=== PATIENT | female | born 1970 | race Caucasian/White ===

== ENCOUNTER → 2024-01-15 16:45 | Outpatient (REF) | payer OTHER, SELFPAY | LOC: HWWDC 16:45 | PROVIDERS: ATTENDING PHYSICIAN Nurse Practitioner | DX: Z12.31 Encounter for screening mammogram for malignant neoplasm of breast (principal) | CPT/HCPCS: 77063; 77067 ==

== ENCOUNTER 2024-01-15 20:25 | Emergency (ER) | payer OTHER, SELFPAY ==
[2024-01-15 20:29] VITALS: BP 137/66
--- NOTE | 2024-01-15 20:54 | ED.GENMED ---
History of Present Illness
General
Chief Complaint: Ear Problem
Source: patient
Exam Limitations: none
Time Seen by Provider: 01/15/24 20:42
Nursing documentation reviewed up to this point in time: agreed with
Travel History
Have you had any contact with someone who has COVID-19?: No
Do you have any symptoms of coronavirus? Fever > 100 degrees, chills, cough, shortness of breath, sore throat, loss of taste or smell, muscle aches, or headache?: No
History of Present Illness
History of Present Illness:
Patient states she developed pain and fullness to her right ear approx 10 days ago. She was seen at and placed on amoxicillin and nasal decongestant without improvemen. States ear pain is worsening. Denies fever/chlls. Has appt with ENT
scheduled for next week.
Past History
Past History
ED Past Medical History: None
ED Past Surgical History: None
Social History
Tobacco: Non-smoker
Drug: None
Personal:
Living: with family
Family History
Family History: Other (NA)
Review of Systems
Review of Systems
Allergies reviewed?: Yes
All Other Systems: ROS reviewed and negative except as documented in HPI and ROS
Constitutional: Reports no symptoms
EENT: Reports other (right ear pain)
Musculoskeletal: Reports no symptoms
Skin: Reports no symptoms
Neurological: Reports no symptoms
Psychiatric: Reports no symptoms
Phy Exam
General Physical Exam
General Presentation: well appearing
General age: appears stated age
General Skin: warm and dry
General Habitus: normal
General Mental: alert
ENT Exam
ENT Exam: EOMI, TM's normal, pharynx normal, neck supple, swallowing well and other (Left canal narrow, painful. No discharge. WIll place on cortisporin drops. )
Musculoskeletal Exam
Musculoskeletal Exam: full ROM and neuro vasc intact
Skin Exam
Skin Exam: normal color, warm/dry and no rash
Psychiatric Exam
Psychiatric Exam: normal mood/affect
Course
Orders/Labs/Results
Orders:
Orders
01/15/24 20:50
Neomycin/Polymyxin/Hc [Cortisporin Otic Suspension] See Dose Instructions [facility] NOW STA
Vital Signs
Initial and Last Documented VS:
Initial Vital Signs
Temp Pulse Resp BP Pulse Ox
98.3 F 67 18 137/66 98
01/15/24 20:29 01/15/24 20:29 01/15/24 20:29 01/15/24 20:29 01/15/24 20:29
Last Documented Vital Signs
Temp Pulse Resp BP Pulse Ox
98.3 F 67 18 137/66 98
01/15/24 20:29 01/15/24 20:29 01/15/24 20:29 01/15/24 20:29 01/15/24 20:29
*Critical Care Note
Total Time (30-74mins, 75-104mins- exclusive of procedures): Not Applicable
ED Attending Note
-
Portions of this chart may have been created with voice recognition software.� Occasional wrong word or��sound alike� substitutions may have occurred due to the inherent limitations of voice recognition software.
Discharge Plan
Departure
Patient Disposition: Home (Routine Discharge)
Date of Disposition: 01/15/24
Time of Disposition: 20:51
Patient with high blood pressure during this ER visit?: No
Condition: Good
Covid-19: Not Applicable
Discharge Problem:
Acute ear pain
Instructions: Outer Ear Infection (DC)
Prescriptions:
New
Cortisporin-TC 3.3-3-10-0.5 mg/mL drops,suspension
4 drp otic (ear) TID Qty: 10 0RF
No Action
ibuprofen 200 MG tablet
400 mg PO Q4HPRN PRN (Reason: mild pain)
peg 400-propylene glycol (PF) [Systane (PF)] 1 EACH dropperette
1 drp BOTH EYES DAILYPRN PRN (Reason: dry eyes)
melatonin 10 MG tablet,disintegrating
10 mg PO HSPRN PRN (Reason: sleep)
prochlorperazine maleate 10 MG tablet
10 mg PO DAILY PRN (Reason: headache/nausea) 30 Days Qty: 30 0RF
Rx Instructions:
for headache symptom control
Do not utilize more than 4x/weekly per Neurology
Activity Restrictions/Additional Instructions:
Follow up with ENT next week as scheduled
Interventions
Interventions:
*Risk Screen - Suicide Last Done: 01/15/24 20:29
*General Assessment Last Done: 01/15/24 20:29
*Neglect/Abuse Screening Last Done: 01/15/24 20:29
Discharge Date and Time
Print Language: MAURITIAN
[2024-01-15] MEDS: CORTISPORIN OTIC SUSPENSION 1 DROP OTIC (21:04)
== END 2024-01-15 21:20 | disposition home or self-care (01) ==
LOC: EMR 20:25
PROVIDERS: EMERGENCY PHYSICIAN Emergency Medicine; FAMILY PHYSICIAN Nurse Practitioner
DX: H92.03 Otalgia, bilateral (principal)
CPT/HCPCS: 99282

== ENCOUNTER → 2024-09-04 13:02 | Outpatient (REF) | payer OTHER, SELFPAY | LOC: HWRAD 13:02 | PROVIDERS: ATTENDING PHYSICIAN Family Medicine | DX: Z13.820 Encounter for screening for osteoporosis (principal) | CPT/HCPCS: 77080 ==

== ENCOUNTER 2024-11-02 08:02 | Emergency (ER) | payer OTHER, SELFPAY ==
[2024-11-02 08:04] VITALS: BP 131/73
--- NOTE | 2024-11-02 09:09 | ED.MUSCINJ ---
HPI-Injury
General
Chief Complaint: Musculo-Skeletal Complaint
Source: patient
Exam Limitations: none
Time Seen by Provider: 11/02/24 08:31
Nursing documentation reviewed up to this point in time: agreed with
History of Present Illness-Injury
Initial Injury comments:
54-year-old female celebrating [place] win last night threw her hands up into the air and left elbow came down hard on the back of a chair. Pain posterior left elbow.
Past History
Past History
ED Past Medical History: None
ED Past Surgical History: Gynecological and Orthopedic
Social History
Tobacco: Non-smoker
Alcohol: Occasional
Drug: None
Personal:
Living: with family
Employment: Employed
Family History
Family History: Other (NA)
Review of Systems
Review of Systems
Allergies reviewed?: Yes
All Other Systems: ROS reviewed and negative except as documented in HPI and ROS
Musculoskeletal: Reports other (pain left elbow)
Skin: Reports no symptoms
Neurological: Denies weakness or numbness
Phy Exam
Physical Exam
Physical Exam:
PHYSICAL EXAMINATION:
General: no apparent distress, not acutely ill
Neuro: alert and oriented.
Psychiatric: well kept. interactive and cooperative
Musculoskeletal: Posterior left elbow with mild swelling and mild ecchymosis. Full ROM. Distan N/V intact. Moves with ease
Skin: Warm, pink.
Injury Course
Orders/Labs/Results
Orders:
Orders
11/02/24 08:06
Elbow, 3 view, Left [CR Elbow - Left Min 3 Views ] Urgent
Comment: came down on chair yesterday
Reason For Exam: left elbow pain
MDM/Problems Addressed
Differential Diagnosis Includes:
contusion vs fracture
MDM/Problems Addressed:
54-year-old female celebrating [place] win last night threw her hands up into the air and left elbow came down hard on the back of a chair. Pain posterior left elbow.
Elbow x-ray read by this examiner: No acute abnormality noted
Final diagnosis: Contusion left elbow
*Critical Care Note
Total Time (30-74mins, 75-104mins- exclusive of procedures): Not Applicable
ED Attending Note
-
Portions of this chart may have been created with voice recognition software.� Occasional wrong word or��sound alike� substitutions may have occurred due to the inherent limitations of voice recognition software.
Discharge Plan
Departure
Patient Disposition: Home (Routine Discharge)
Date of Disposition: 11/02/24
Time of Disposition: 09:08
Patient with high blood pressure during this ER visit?: No
Condition: Good
Discharge Problem:
Contusion of left elbow
Instructions: Contusion (DC)
Prescriptions:
No Action
ibuprofen 200 MG tablet
400 mg PO Q4HPRN PRN (Reason: mild pain)
peg 400-propylene glycol (PF) [Systane (PF)] 1 EACH dropperette
1 drp BOTH EYES DAILYPRN PRN (Reason: dry eyes)
melatonin 10 MG tablet,disintegrating
10 mg PO HSPRN PRN (Reason: sleep)
prochlorperazine maleate 10 MG tablet
10 mg PO DAILY PRN (Reason: headache/nausea) 30 Days Qty: 30 0RF
Rx Instructions:
for headache symptom control
Do not utilize more than 4x/weekly per Neurology
Cortisporin-TC 3.3-3-10-0.5 mg/mL drops,suspension
4 drp otic (ear) TID Qty: 10 0RF
Referrals:
Mary Perez, DO [Family Provider] -
Activity Restrictions/Additional Instructions:
As we discussed, your xray shows nothing broken.
Interventions
Interventions:
*Risk Screen - Suicide Last Done: 11/02/24 08:04
*Neglect/Abuse Screening Last Done: 11/02/24 08:04
*Nursing Disposition Last Done: 11/02/24 09:15
ED-Musculoskeletal Assessment Last Done: 11/02/24 09:15
Discharge Date and Time
Discharge Date/Time: 11/02/24 09:16
Print Language: NORWEGIAN
== END 2024-11-02 09:16 | disposition home or self-care (01) ==
LOC: EMR 08:02
PROVIDERS: EMERGENCY PHYSICIAN Student in an Organized Health Care Education/Training Program; FAMILY PHYSICIAN Family Medicine
DX: S50.02XA Contusion of left elbow, initial encounter (principal); W22.03XA Walked into furniture, initial encounter
CPT/HCPCS: 99283; 73080

== ENCOUNTER → 2025-02-18 12:57 | Outpatient (REF) | payer OTHER, SELFPAY | LOC: HWWDC 12:57 | PROVIDERS: ATTENDING PHYSICIAN Student in an Organized Health Care Education/Training Program; FAMILY PHYSICIAN Family Medicine | DX: Z12.31 Encounter for screening mammogram for malignant neoplasm of breast (principal) | CPT/HCPCS: 77063; 77067 ==